=== PATIENT | female | born 1970 | race Caucasian/White ===

== ENCOUNTER 2023-05-04 07:19 | Outpatient (CLI) | payer BC ==
[2023-05-04] MEDS ORDERED: Iopamidol 300 61% 100 ML VIAL FS ONE (09:34)
== END 2023-05-04 07:20 | disposition home or self-care (01) ==
LOC: CSHCT 07:19
PROVIDERS: ATTEND Physician Assistant
DX: K65.1 Peritoneal abscess (principal)
CPT/HCPCS: 74177